=== PATIENT | male | born 1965 | race Caucasian/White ===

== ENCOUNTER 2016-12-21 18:31 | Emergency (ER) | payer BC ==
[2016-12-21 18:44] VITALS: BP 124/82
[2016-12-21] MEDS ORDERED: oxyCODONE HCL/ACETAMINOPHEN 1 TAB TABLET PO ONE (19:01)
[2016-12-21] MEDS ORDERED: oxyCODONE HCL/ACETAMINOPHEN 1 TAB TABLET ONE (19:05)
--- NOTE | 2016-12-21 19:19 | ERNOTE ---
Lower Extremity HPI - Narrative Date of Service: 12/21/16 - General Lower Extremities Pain: foot: left - Pain and Swelling Time Seen by Provider: 12/21/16 18:57 Source: patient Exam Limitations: no limitations - Immun/Allergies/Home Medications Immunizations: IMMUNIZATION HX Immunizations Up to Date No History of Influenza Vaccine Yes Allergies/Adverse Reactions: Allergies Allergy/AdvReac Type Severity Reaction Status Date / Time No Known Drug Allergies Allergy Verified 12/21/16 18:44 Home Medications: HOME MEDICATIONS oxyCODONE HCL/ACETAMINOPHEN [Percocet 5 MG/325 MG] 1 tab PO Q6H #10 tablet 12/21 [Last Taken Unknown] - History of Present Illness Narrative: Patient reported that a heavy object felt on his L foot at home. Patient has pain on the mid L foot area. No open wounds or bleeding reported by patient. Occurred: just prior to arrival Location of Incident: home Method of Injury: Reports: direct blow Reason for Fall: Reports: other - none Loss of Consciousness: Reports: no loss of consciousness Modifying Factors - (Improves): Reports: other - nothing Modifying Factors - (Worsens): Reports: movement Associated Symptoms: Reports: unable to bear weight. Denies: snapping, popping sensation, dizzy/light headedness, headache, weakness, sensory loss, chest pain , vomiting/diarrhea, bowel/bladder problems Other Injuries: Reports: none Subsequent Symptoms: Denies: sensory loss, numbness, motor loss, bowel/bladder problem Prior Treament: Denies: recently seen Review of Systems - Review of Systems Constitutional: Absent: fever, chills, diaphoresis, weakness, fatigue, malaise EYE: Present: no symptoms reported ENT: Present: no symptoms reported Respiratory: Present: no symptoms reported Cardiology: Present: no symptoms reported Gastrointestinal/Abdominal: Present: no symptoms reported Genitourinary: Present: no symptoms reported Musculoskeletal: Present: muscle pain, joint swelling - Pain on the L foot area Skin: Present: no symptoms reported Neurological: Present: no symptoms reported Endocrine: Present: no symptoms reported Hematologic/Lymphatic: Present: no symptoms reported Psych: Present: no symptoms reported All Other Systems: All systems neg except as marked - Patient's Past Medical History Patient History - Medical: No pertinent hx Patient History - Cardiac/Respiratory: No pertinent hx Patient History - Cancer: No Hx of Cancer - Social History Living Situations: home Psych History: No pertinent hx Smoking Status: Current every day smoker Alcohol Use: none Drug Use: marijuana - Immunizations Immunizations Up to Date: No History of Influenza Vaccine: Yes Physical Exam - Physical Exam General Appearance: Present: wd/wn, alert, no apparent distress Eye Exam: Normal inspection: bilateral Ears, Nose, Throat: Present: normal ENT inspection Neck: Present: normal inspection Respiratory: Present: no respiratory distress Cardiovascular/Chest: Present: normal peripheral pulses Gastrointestinal/Abdominal: Present: nontender, soft. Absent: distended Extremity Exam: Present: normal inspection, no edema, bony tenderness - Pain on the L mid foot dorsal area. Good capillary refill and good sensation., joint swelling - mild L foot swelling Neurological Exam: Present: alert, oriented, normal mood/affect, no motor/ sensory deficits Skin Exam: Present: normal color, warm/dry. Absent: skin rash Lymphatic Exam: Present: no adenopathy ED Progress - Vital Signs Patient's Vital Signs:: I have reviewed the patient's vital signs. Vital Signs: Vital Signs 12/21/16 18:39 Temperature 37.2 C Pulse Rate 91 Respiratory 18 Rate Blood Pressure 124/82 O2 Sat by Pulse 97 Oximetry - X-Ray X-Ray #1 X-Ray: foot Interpretation: Interp. by me X-ray Comments: No displaced Fx was noticed. - Progress/Reassessment Chief Complaint: Foot Injury/Pain Progress:: Improved - Transfer of Care Expected Disposition: Discharge Departure Clinical Impression: Foot sprain Qualifiers: Encounter type: initial encounter Laterality: left Qualified Code(s): S93.602A - Unspecified sprain of left foot, initial encounter - Departure Disposition: Home self-care Condition: Stable Instructions: Foot Sprain Additional Instructions: Please follow up with your Primary Care Provider Prescriptions: oxyCODONE HCL/ACETAMINOPHEN [Percocet 5 MG/325 MG] 1 tab PO Q6H #10 tablet
--- OUTSIDE RECORDS SUMMARY | 2016-12-21 19:30 | XMS REPORT | Summary of Care ---
:1965 Author Organization [facility] Address [address] [place] [address] Care Team Providers Name Role Phone Physician, Primary Care Primary Care Physician Unavailable Encounter Date(s): 11/30/16 - 11/30/16 [facility] Rachell Freed, [address] [place], [place] [address] Discharge Diagnosis: Calcaneal spur of right foot Discharge Diagnosis: Right foot pain Discharge Diagnosis: Plantar fasciitis Discharge Diagnosis: Left foot pain Discharge Disposition: 01 Discharged to Home or Self Care Attending Physician: Joyce Huff DPM Referring Physician: Joyce Huff DPM Vital Signs Most recent to oldest [Reference Range]: 1 Peripheral Pulse Rate [60-100 bpm] 72 bpm (11/30/16 8:58 AM) Blood Pressure [90-130/60-90 mmHg] 136/84mmHg *HI* (11/30/16 8:58 AM) Mean Arterial Pressure, Cuff 101 mmHg (11/30/16 8:58 AM) Most recent to oldest [Reference Range]: 1 Height/Length Measured 181.0 cm (11/30/16 8:58 AM) Weight Dosing 86.40 kg1 (11/30/16 9:01 AM) Weight Measured 86.4 kg (11/30/16 8:58 AM) BSA Measured 2.07 m2 (11/30/16 8:58 AM) Body Mass Index Measured 26.37 kg/m2 (11/30/16 8:58 AM) 1Result Comment: This result was because the dosing weight was either not entered or it is>30 days old. 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 by Lissette Lacey [facility] Problem List Condition Effective Dates Status Health Status Informant Cervicalgia(Confirmed) Active Chest pain(Confirmed) Active Clavical fx(Confirmed) 1989 Active Labral tear(Confirmed) 2003 Active Allergies, Adverse Reactions, Alerts No Known Allergies Medications Aleve 220 mg, Oral, q8hr interval, 0 Refill(s) Start Date: 03/19/14 Status: Orderedaspirin 81 mg oral tablet 1 tab(s), Oral, Daily, 0 Refill(s) Start Date: 03/18/14 Stop Date: 03/19/14 Status: Completedcephalexin 500 mg oral capsule 2 cap(s), Oral, q12hr, # 56 cap(s), 0 Refill(s), Start Date: 09/11/14 12:31:00 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 D/C if GI upset., # 30 tab(s), 3 Refill( s), Start Date: 11/23/16 10:31:00 [employer]RA[employer]IGN, Pharmacy: [facility] [id number] Special Instructions: Take with food. D/C if GI upset. Start Date: 11/23/16 Status: Ordered Results No data available for this section Immunizations No data available for this section Procedures Procedure Date Related Diagnosis Body Site Epidural Steroid Injection - Cervical1 04/07/14 Right Shoulder repair 2001 1auto-populated from documented surgical case Social History No data available for this section Assessment and Plan No data available for this section
--- OUTSIDE RECORDS SUMMARY | 2016-12-21 19:30 | XMS REPORT | Summary of Care ---
:1965 Author Organization [facility] Address [address] [place] [address] Care Team Providers Name Role Phone Physician, Primary Care Primary Care Physician Unavailable Encounter Date(s): 12/14/16 - 12/14/16 [facility] Rachell Freed, [address] [place], [place] [address] Discharge Diagnosis: Plantar fasciitis Discharge Diagnosis: Right foot pain Discharge Diagnosis: Calcaneal spur of right foot Discharge Diagnosis: Left foot pain Discharge Disposition: 01 Discharged to Home or Self Care Attending Physician: Joyce Huff DPM Referring Physician: Unknown Physician Vital Signs Most recent to oldest [Reference Range]: 1 Peripheral Pulse Rate [60-100 bpm] 69 bpm (12/14/16 8:58 AM) Blood Pressure [90-130/60-90 mmHg] 156/78mmHg *HI* (12/14/16 8:58 AM) Mean Arterial Pressure, Cuff 104 mmHg (12/14/16 8:58 AM) Most recent to oldest [Reference Range]: 1 Height/Length Estimated 181 cm (12/14/16 8:58 AM) Weight Dosing 85.20 kg1 (12/14/16 9:03 AM) Weight Measured 85.2 kg (12/14/16 8:58 AM) 1Result Comment: This result was because the dosing weight was either not entered or it is>30 days old. 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 by Lissette Lacey CMA Problem List Condition Effective Dates Status Health Status Informant Cervicalgia(Confirmed) Active Chest pain(Confirmed) Active Clavical fx(Confirmed) 1989 Active Labral tear(Confirmed) 2004 Active Allergies, Adverse Reactions, Alerts No Known Allergies Medications Aleve 220 mg, Oral, q8hr interval, 0 Refill(s) Start Date: 03/19/14 Status: Orderedaspirin 81 mg oral tablet 1 tab(s), Oral, Daily, 0 Refill(s) Start Date: 03/18/14 Stop Date: 03/19/14 Status: Completedcephalexin 500 mg oral capsule 2 cap(s), Oral, q12hr, # 56 cap(s), 0 Refill(s), Start Date: 09/11/14 12:31:00 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 D/C if GI upset., # 30 tab(s), 3 Refill( s), Start Date: 11/23/16 10:31:00 COLD PRESS LOADER, Pharmacy: [facility] [id number] Special Instructions: Take with food. D/C if [...]
--- OUTSIDE RECORDS SUMMARY | 2016-12-21 19:31 | XMS REPORT | Summary of Care ---
:1965 Author Organization [facility] Address [address] [place] [address] Care Team Providers Name Role Phone Physician, Primary Care Primary Care Physician Unavailable Encounter Date(s): 11/23/16 - 11/23/16 [facility] Rachell Freed, [address] [place], [place] [address] Discharge Diagnosis: Plantar fasciitis Discharge Diagnosis: Right foot pain Discharge Diagnosis: Left foot pain Discharge Diagnosis: Calcaneal spur of right foot Discharge Disposition: 01 Discharged to Home or Self Care Attending Physician: Joyce Huff DPM Referring Physician: Unknown Physician Vital Signs Most recent to oldest [Reference Range]: 1 Peripheral Pulse Rate [60-100 bpm] 78 bpm (11/23/16 9:01 AM) Blood Pressure [90-130/60-90 mmHg] 156/88mmHg *HI* (11/23/16 9:01 AM) Mean Arterial Pressure, Cuff 111 mmHg (11/23/16 9:01 AM) Most recent to oldest [Reference Range]: 1 Height/Length Estimated 177 cm (11/23/16 9:01 AM) Weight Dosing 87.10 kg1 (11/23/16 9:05 AM) Weight Measured 87.1 kg (11/23/16 9:01 AM) 1Result Comment: This result was because the dosing weight was either not entered or it is>30 days old. 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 by Lissette Lacey CMA Problem List Condition [...] cap(s), 0 Refill(s), Start Date: 09/11/14 12:31:00 FRETTED INSTRUM[employer] INSPECTOR, Pharmacy: [id number] Start Date: 09/11/14 Stop Date: 09/25/14 Status: Ordereddexamethasone (office) 4 mg/mL, IM, ONETIME, First Dose: 11/23/16 11:00:00 FRETTED [employer]UM[employer] INSPECTOR, Stop Date: 11/23/16 11: 00:00 FRETTED INSTRUMENTS INSPECTOR, Diagnosis: Plantar fasciitis | Right foot pain | Left foot pain | Calcaneal spur of right foot Start Date: 11/23/16 Stop Date: 11/23/16 Status: CompletedLamISIL 250 mg oral tablet 1 tab(s), Oral, Daily, # 90 tab(s), 0 Refill(s), Start Date: 09/11/14 12:31:00 FRETTED INSTRUM[employer] INSPECTOR, Pharmacy: [facility] [id number] Start Date: 09/11/14 Stop Date: 12/10/14 Status: Orderedmeloxicam 7.5 mg oral tablet 1 tab(s), Oral, Daily, Take with food. D/C if GI upset., # 30 tab(s), 3 Refill( s), Start Date: 11/23/16 10:31:00 FRETTED INSTRUM[employer] INSPECTOR, Pharmacy: [id number] Special Instructions: Take with food. D/C if GI upset. Start Date: 11/23/16 Status: OrderedmethylPREDNISolone (office) 80 mg/mL, IM, ONETIME, First Dose: 11/23/16 11:00:00 FRETTED [employer]UM[employer] INSPECTOR, Stop Date: 11/23/16 11 :00:00 FRETTED [employer]UM[employer] INSPECTOR, Diagnosis: Plantar fasciitis | Right foot pain | Left foot pain | Calcaneal spur of right foot Start Date: 11/23/16 Stop Date: 11/23/16 Status: Completed Results No data available for this section Immunizations No data available for this section Procedures Procedure Date Related Diagnosis Body Site Epidural Steroid Injection - Cervical1 04/07/14 Right Shoulder repair 2001 1auto-populated from documented surgical case Social History No data available for this section Assessment and Plan No data available for this section"
== END 2016-12-21 20:00 | disposition home or self-care (01) ==
LOC: ER 18:31
DX: S93.602A Unspecified sprain of left foot, initial encounter (principal); Z72.0 Tobacco use; X58.XXXA Exposure to other specified factors, initial encounter; Y92.009 Unspecified place in unspecified non-institutional (private) residence as the place of occurrence of the external cause